=== PATIENT | female | born 1980 | race African-American/Black ===

== ENCOUNTER → 2019-08-07 | Day surgery (SDC) | payer OTHER ==
--- NOTE | 2019-08-08 16:27 | PATH ---
Surgical Pathology Report Patient Name: RISSA GARRISON [facility]. Rec. #: [id number] /Age/Gender: 1980 (Age: 38) / F Account: [id number] Location: ON LICENSE OF [facility] Taken: 08/07/2019 Received: 08/07/2019 Reported: 08/08/2019 Physicians: Milla Coot M.D. Specimen(s) Received A: BREAST, RIGHT, 10:00 B: BREAST, LEFT, 4:00 C: BREAST, LEFT, 4:30 Clinical History Right breast 10:00 0.58 cm, mass Left breast 4:00, 1.49 cm, ? ectatic duct Left breast 4:30, 0.85 cm, solid mass Final Diagnosis A. 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 B. BREAST, LEFT, 4:00, ULTRASOUND GUIDED CORE BIOPSY: INTRADUCTAL PAPILLOMA. C. BREAST, LEFT, 4:30, ULTRASOUND GUIDED CORE BIOPSY: FIBROADENOMA. Electronically Signed Tracey Fletcher M.D. Gross Description A. Received in formalin labeled "right breast 10:00," are 6 corrigan-yellow, cylindrical portions of fibroadipose tissue ranging from 0.6-1.2 cm in length and averaging 0.1 cm in diameter. The specimens are submitted in toto in one cassette. B. Received in formalin labeled "left breast 4:00," are 5 corrigan-yellow, cylindrical portions of fibroadipose tissue ranging from 0.3-1.0 cm in length and averaging 0.1 cm in diameter. The specimens are submitted in toto in one cassette. C. Received in formalin labeled "left breast 4:30," are 3 corrigan-yellow, cylindrical portions of fibroadipose tissue ranging from 0.5-0.8 cm in length and averaging 0.1 cm in diameter. The specimens are submitted in toto in one cassette. Time to formalin fixation: Less than one minute Total formalin fixation time: Approximately 6 hours. /08/07/2019 saudi/08/07/2019
== END | disposition home or self-care (01) ==
LOC: JMAMMO-SUR 10:38
PROVIDERS: ATTEND Obstetrics & Gynecology
PROC: 0H9V3ZX Drainage of Bilateral Breast, Percutaneous Approach, Diagnostic (ICD-10-PCS; principal; 2019-08-07)
DX: D24.2 Benign neoplasm of left breast (principal); N62 Hypertrophy of breast
CPT/HCPCS: 19083; 19084; 77066-TC; 87899; 88305-TC; A4648

== ENCOUNTER 2022-07-02 23:19 | Inpatient (IN) | payer OTHER ==
[2022-07-03] MEDS ORDERED: SUCRALFATE 1 GM TABLET (FP) PO ONE (00:40)
[2022-07-03] MEDS ORDERED: LACTATED RINGERS SOLUTION 1000 ML INFUS.BAG IV ONE (00:41)
[2022-07-03] MEDS ORDERED: FAMOTIDINE 20 MG/50 ML IVPB 20 MG/50 ML MG IVPB ONE ×2 (00:41→01:05)
[2022-07-03] MEDS ORDERED: MAG HYDROX/AL HYDROX/SIMETH -MYLANTA- ORAL SUSPENSION PO ONE (00:41)
[2022-07-03] MEDS ORDERED: SUCRALFATE 1 GM TABLET (FP) ONE (01:05)
[2022-07-03] MEDS ORDERED: MAG HYDROX/AL HYDROX/SIMETH 30 ML UNIT-DOSE CUP ONE (01:05)
[2022-07-03 01:55] LABS: EPI CELLS 5 /uL (0-25.1); HYALINE CASTS 1 /uL (0-3.1); PH,URINE 6.5 (5.0-8.0); URINE APPEARANCE CLEAR; URINE BACTERIA 65 /uL (0-1359); URINE BILIRUBIN 2+ (NEGATIVE); URINE COLOR DK YELLOW; URINE GLUCOSE (UA) NEGATIVE (NEGATIVE); URINE KETONE TRACE (NEGATIVE); URINE LEUK ESTERASE NEGATIVE (NEGATIVE); URINE NITRITE NEGATIVE (NEGATIVE); URINE PROTEIN NEGATIVE (NEGATIVE); URINE RBC 49 /uL (0-23.9); URINE WBC 9 /uL (0-25.8)
[2022-07-03 02:08] LABS: INR 1.01 (0.83-1.09); PROTHROMBIN TIME (PATIENT) 11.6 SEC (9.7-13.0)
[2022-07-03 02:10] LABS: ACTIVATED PTT 29.7 SECONDS (25.2-36.5)
[2022-07-03 02:13] LABS: BLOOD UREA NITROGEN 9.1 mg/dL (7-18); CALCIUM 9.8 mg/dL (8.5-10.1)
[2022-07-03 02:14] LABS: ALBUMIN 3.8 g/dl (3.4-5.0)
[2022-07-03 02:18] LABS: TOT PROT 7.5 g/dl (6.4-8.2)
[2022-07-03] MEDS ORDERED: morphine CARPU-JECT 4 MG/1 ML DISP.SYRIN IVPUSH ONE ×2 (02:21→10:16)
[2022-07-03 02:28] LABS: EOS % 5.4 % (0-4.5); HEMATOCRIT 45.4 % (32.4-45.2); HEMOGLOBIN 14.8 GM/dL (10.7-15.3); LYMPH % 20.4 % (8-40); MCH 30.8 pg (25.7-33.7); MCHC 32.7 g/dl (32.0-36.0); MEAN CELL VOLUME 94.3 fl (80-96); MEAN PLT VOLUME 8.8 fl (7.5-11.1); MONO % 9.2 % (3.8-10.2); PLATELET COUNT 232 10^3/uL (134-434); RBC 4.82 M/mm3 (3.60-5.2); RDW 13.8 % (11.6-15.6); WHITE BLOOD COUNT 4.3 K/mm3 (4.0-10.0)
[2022-07-03] MEDS ORDERED: morphine SULFATE 4 MG/ML VIAL ONE ×2 (02:39→10:37)
[2022-07-03 02:59] LABS: BILIRUBIN,DIRECT 3.2 mg/dL (0.0-0.2)
[2022-07-03] MEDS ORDERED: CEFTRIAXONE 1 GM in DEXTROSE 5%-WATER - 50 ML IVPB ONE (06:30)
[2022-07-03] MEDS ORDERED: CEFTRIAXONE 1 GM/50 ML BAG ONE (06:41)
[2022-07-03] MEDS ORDERED: SODIUM CHLORIDE 1,000 ML IV STA (10:16)
[2022-07-03] MEDS ORDERED: SODIUM CHLORIDE 1,000 ML IV SCH (11:30)
[2022-07-03] MEDS ORDERED: PIPERACILLIN/TAZOB 3.375 GM 3.375 GM in DEXTROSE 5%-WATER - 50 ML IVPB SCH ×2 (12:00→18:00)
[2022-07-03] MEDS ORDERED: PIPERACILLIN/TAZOB 3.375 GM 3.375 GM/50 ML BAG IVPB ONE ×2 (12:44→19:29)
[2022-07-03] MEDS: D5-1/2NS+20 MEQ KCL - 20 MEQ/1,000 ML INFUS.BAG IV SCH (12:56)
[2022-07-03] MEDS: PIPERACILLIN/TAZOB 3.375 GM 3.375 GM in DEXTROSE 5%-WATER - 50 ML IVPB SCH (19:33)
[2022-07-03 21:45] LABS: BASO % 1.2 % (0-2.0); EOS % 8.9 % (0-4.5); HEMATOCRIT 37.2 % (32.4-45.2); HEMOGLOBIN 12.4 GM/dL (10.7-15.3); MCH 31.4 pg (25.7-33.7); MCHC 33.3 g/dl (32.0-36.0); MEAN CELL VOLUME 94.2 fl (80-96); MEAN PLT VOLUME 8.5 fl (7.5-11.1); MONO % 11.9 % (3.8-10.2); PLATELET COUNT 241 10^3/uL (134-434); RBC 3.95 M/mm3 (3.60-5.2); RDW 13.7 % (11.6-15.6); WHITE BLOOD COUNT 3.1 K/mm3 (4.0-10.0)
[2022-07-03 21:51] LABS: PROTHROMBIN TIME (PATIENT) 11.5 SEC (9.7-13.0)
[2022-07-03 22:05] LABS: CALCIUM 8.9 mg/dL (8.5-10.1)
[2022-07-03 22:06] LABS: ALBUMIN 3.3 g/dl (3.4-5.0); BLOOD UREA NITROGEN 4.5 mg/dL (7-18)
[2022-07-03 22:09] LABS: BILIRUBIN,DIRECT 3.3 mg/dL (0.0-0.2); CREATININE 0.9 mg/dL (0.55-1.3)
[2022-07-03 22:11] LABS: BILIRUBIN,TOTAL 5.3 mg/dL (0.2-1); TOT PROT 6.6 g/dl (6.4-8.2)
[2022-07-03] MEDS ORDERED: morphine SULFATE 4 MG/ML VIAL IVPUSH ONE (22:31)
[2022-07-03] MEDS ORDERED: MINERAL OIL ENEMA 133 ML ENEMA RC ONE (22:34)
[2022-07-04] MEDS: D5-1/2NS+20 MEQ KCL - 20 MEQ/1,000 ML INFUS.BAG IV SCH ×2 (01:48→10:50)
[2022-07-04] MEDS: PIPERACILLIN/TAZOB 3.375 GM 3.375 GM in DEXTROSE 5%-WATER - 50 ML IVPB SCH ×3 (02:31→17:16)
[2022-07-04] MEDS ORDERED: PSYLLIUM 5.85 GM PACKET PO PRN (04:47)
[2022-07-04 09:06] VITALS: BMI 26.0
[2022-07-04 10:24] LABS: EOS % 12.9 % (0-4.5); HEMATOCRIT 35.5 % (32.4-45.2); HEMOGLOBIN 11.8 GM/dL (10.7-15.3); LYMPH % 33.5 % (8-40); MCH 31.3 pg (25.7-33.7); MCHC 33.3 g/dl (32.0-36.0); MEAN CELL VOLUME 93.8 fl (80-96); MEAN PLT VOLUME 8.8 fl (7.5-11.1); MONO % 11.6 % (3.8-10.2); PLATELET COUNT 248 10^3/uL (134-434); RBC 3.78 M/mm3 (3.60-5.2); RDW 13.5 % (11.6-15.6)
[2022-07-04 10:50] LABS: CALCIUM 8.7 mg/dL (8.5-10.1)
[2022-07-04 10:51] LABS: BLOOD UREA NITROGEN 3.4 mg/dL (7-18)
[2022-07-04 10:52] LABS: CREATININE 0.9 mg/dL (0.55-1.3)
[2022-07-04 10:53] LABS: BILIRUBIN,TOTAL 4.3 mg/dL (0.2-1); TOT PROT 6.1 g/dl (6.4-8.2)
[2022-07-04] MEDS ORDERED: MIDAZOLAM HCL 2 MG/2 ML SINGLE DOSE VIAL ONE (13:36)
[2022-07-04] MEDS ORDERED: INDOMETHACIN 50 MG RECTAL SUPPOSITORY PR ONE ×2 (14:00→14:22)
[2022-07-04] MEDS ORDERED: IOHEXOL 300 MG/ML INFUS..BTL IV ONE (14:51)
[2022-07-04] MEDS ORDERED: DEXTROSE 5%-LACTATED RINGERS 1,000 ML IV SCH ×2 (16:00→23:00)
[2022-07-05] MEDS: PIPERACILLIN/TAZOB 3.375 GM 3.375 GM in DEXTROSE 5%-WATER - 50 ML IVPB SCH ×3 (02:06→17:37)
[2022-07-05] MEDS: DEXTROSE 5%-LACTATED RINGERS 1,000 ML IV SCH ×2 (03:45→09:49)
[2022-07-05] MEDS ORDERED: morphine SULFATE 4 MG/ML VIAL IVPUSH ONE ×2 (06:02→20:54)
[2022-07-05] MEDS: DOCUSATE SODIUM 100 MG CAPSULE (FP) PO PRN ×2 (09:33→22:28)
[2022-07-05 11:01] LABS: ALBUMIN 2.8 g/dl (3.4-5.0)
[2022-07-05 11:03] LABS: BILIRUBIN,DIRECT 1.5 mg/dL (0.0-0.2)
[2022-07-05 11:05] LABS: TOT PROT 5.5 g/dl (6.4-8.2)
[2022-07-05 11:06] LABS: BILIRUBIN,TOTAL 2.8 mg/dL (0.2-1)
[2022-07-05] MEDS ORDERED: BUPIVACAINE HCL/PF 0.25% (2.5MG/ML) 10 ML VIAL ONE (14:58)
[2022-07-05] MEDS ORDERED: SODIUM PHOSPHATE/NA BIPHOS 133 ML ENEMA RC ONE (15:53)
[2022-07-05] MEDS ORDERED: PIPERACILLIN/TAZOBACTAM 3.375 GM VIAL IVPB ONE (17:23)
[2022-07-05] MEDS ORDERED: oxyCODONE HCL 5 MG TABLET PO ONE (21:58)
[2022-07-06] MEDS: PIPERACILLIN/TAZOB 3.375 GM 3.375 GM in DEXTROSE 5%-WATER - 50 ML IVPB SCH ×2 (02:46→09:21)
[2022-07-06] MEDS: DEXTROSE 5%-LACTATED RINGERS 1,000 ML IV SCH ×2 (02:52→11:44)
[2022-07-06] MEDS ORDERED: POLYETHYLENE GLYCOL (HEALTHYLAX) 3350 17 GM PACKET PO SCH (10:00)
[2022-07-06] MEDS ORDERED: BUPIVACAINE HCL/PF 0.5% (5MG/ML) 10 ML VIAL IJ ONE ×2 (11:04)
[2022-07-06] MEDS ORDERED: SUCCINYLCHOLINE CHLORIDE 200 MG/10 ML SYRINGE ONE (11:26)
[2022-07-06] MEDS ORDERED: PROPOFOL 20 ML ONE (11:26)
[2022-07-06] MEDS ORDERED: MIDAZOLAM HCL 2 MG/2 ML SINGLE DOSE VIAL ONE (11:27)
[2022-07-06 11:57] LABS: HEMATOCRIT 31.8 % (32.4-45.2); HEMOGLOBIN 10.6 GM/dL (10.7-15.3); MCH 31.1 pg (25.7-33.7); MCHC 33.2 g/dl (32.0-36.0); MEAN CELL VOLUME 93.9 fl (80-96); PLATELET COUNT 209 10^3/uL (134-434); RBC 3.39 M/mm3 (3.60-5.2); RDW 13.5 % (11.6-15.6); WHITE BLOOD COUNT 3.1 K/mm3 (4.0-10.0)
[2022-07-06] MEDS ORDERED: ROCURONIUM BROMIDE 50 MG/5 ML SYRINGE ONE (12:04)
[2022-07-06] MEDS ORDERED: KETOROLAC TROMETHAMINE 30 MG/1 ML VIAL ONE (12:05)
[2022-07-06] MEDS ORDERED: DEXAMETHASONE SOD PHOSPHATE 4 MG/1 ML VIAL ONE (12:05)
[2022-07-06] MEDS ORDERED: ONDANSETRON 4 MG/2 ML VIAL ONE (12:05)
[2022-07-06] MEDS ORDERED: HYDROmorphone HCl 2 MG/ML VIAL ONE (12:07)
[2022-07-06] MEDS ORDERED: NEOSTIGMINE METHYLSULFATE 0.5 MG/ML - 10 ML MDV ONE (12:20)
[2022-07-06] MEDS ORDERED: GLYCOPYRROLATE 0.2 MG/1 ML VIAL ONE (12:21)
[2022-07-06 12:22] LABS: CALCIUM 8.7 mg/dL (8.5-10.1)
[2022-07-06 12:24] LABS: ALBUMIN 2.7 g/dl (3.4-5.0); BLOOD UREA NITROGEN 4.6 mg/dL (7-18)
[2022-07-06 12:27] LABS: CREATININE 0.8 mg/dL (0.55-1.3)
[2022-07-06 12:28] LABS: BILIRUBIN,TOTAL 2.3 mg/dL (0.2-1); TOT PROT 5.5 g/dl (6.4-8.2)
[2022-07-06] MEDS ORDERED: ONDANSETRON 4 MG/2 ML VIAL IVPUSH PRN ×2 (13:04→13:19)
[2022-07-06] MEDS ORDERED: ACETAMINOPHEN 1000 MG/100 ML BAG IVPB ONE (13:04)
[2022-07-06] MEDS ORDERED: LACTATED RINGERS SOLUTION 1,000 ML IV SCH (13:15)
[2022-07-06] MEDS ORDERED: oxyCODONE HCL 5 MG TABLET PO PRN ×2 (13:19)
[2022-07-06] MEDS ORDERED: DOCUSATE SODIUM 100 MG CAPSULE (FP) PO PRN (13:19)
[2022-07-06] MEDS ORDERED: PSYLLIUM 5.85 GM PACKET PO PRN (13:19)
[2022-07-06 15:35] VITALS: RESP 18
[2022-07-06] MEDS: LACTATED RINGERS SOLUTION 1,000 ML IV SCH ×2 (17:30→21:24)
[2022-07-06] MEDS: ACETAMINOPHEN 500 MG TABLET (FP) PO SCH (20:24)
[2022-07-06] MEDS: POLYETHYLENE GLYCOL (HEALTHYLAX) 3350 17 GM PACKET PO SCH (21:23)
[2022-07-07] MEDS: ACETAMINOPHEN 500 MG TABLET (FP) PO SCH ×3 (01:22→14:26)
[2022-07-07] MEDS: LACTATED RINGERS SOLUTION 1,000 ML IV SCH ×2 (05:26→14:23)
[2022-07-07] MEDS: KETOROLAC TROMETHAMINE 30 MG/1 ML VIAL IVPUSH SCH ×2 (06:12→10:43)
[2022-07-07] MEDS: POLYETHYLENE GLYCOL (HEALTHYLAX) 3350 17 GM PACKET PO SCH ×3 (09:19→10:43)
[2022-07-07] MEDS ORDERED: URSODIOL 300 MG CAPSULE PO SCH (10:00)
[2022-07-07] MEDS ORDERED: POLYETHYLENE GLYCOL 3350 255 GM BTL PO ONE (10:30)
[2022-07-07 11:39] LABS: HEMATOCRIT 34.1 % (32.4-45.2); HEMOGLOBIN 11.3 GM/dL (10.7-15.3); MCH 31.1 pg (25.7-33.7); MCHC 33.1 g/dl (32.0-36.0); MEAN CELL VOLUME 94.1 fl (80-96); MEAN PLT VOLUME 8.8 fl (7.5-11.1); PLATELET COUNT 271 10^3/uL (134-434); RBC 3.63 M/mm3 (3.60-5.2); RDW 13.5 % (11.6-15.6); WHITE BLOOD COUNT 6.2 K/mm3 (4.0-10.0)
[2022-07-07 12:01] LABS: ALBUMIN 3.1 g/dl (3.4-5.0); BLOOD UREA NITROGEN 4.6 mg/dL (7-18); CALCIUM 9.1 mg/dL (8.5-10.1)
[2022-07-07 12:05] LABS: CREATININE 0.8 mg/dL (0.55-1.3); TOT PROT 6.4 g/dl (6.4-8.2)
[2022-07-07] MEDS ORDERED: LACTATED RINGERS SOLUTION 1,000 ML IV SCH (13:22)
[2022-07-07 18:00] VITALS: BP 117/72; PULSE 71; TEMP 98.3
== END 2022-07-07 19:25 | disposition home or self-care (01) | DRG 263 ==
LOC: JER 23:19 → JERBED 07-03 05:10 → J5S 07-03 19:41
PROVIDERS: ADMIT Family Medicine; ATTEND Family Medicine
PROC: 0FC98ZZ Extirpation of Matter from Common Bile Duct, Via Natural or Artificial Opening Endoscopic (ICD-10-PCS; 2022-07-04)
PROC: 0F998ZZ Drainage of Common Bile Duct, Via Natural or Artificial Opening Endoscopic (ICD-10-PCS; 2022-07-04)
PROC: BF13YZZ Fluoroscopy of Gallbladder and Bile Ducts using Other Contrast (ICD-10-PCS; 2022-07-04)
PROC: 0FT44ZZ Resection of Gallbladder, Percutaneous Endoscopic Approach (ICD-10-PCS; principal; 2022-07-06 11:30)
DX: K80.21 Calculus of gallbladder without cholecystitis with obstruction (principal); K83.09 Other cholangitis; R10.9 Unspecified abdominal pain; R74.01 Elevation of levels of liver transaminase levels; E86.0 Dehydration
CPT/HCPCS: 0241U-QW; 36415; 71046-TC-FY; 74177-TC; 74181-TC; 74330-TC; 76705-TC; 80048; 80053; 80076; 81003; 82150; 82248; 83690; 83735; 84484; 84703; 85025; 85027; 85610; 85730; 86140; 87040; 87086; 88304-TC; 93005; 93010; 94760; 99285-25

== ENCOUNTER 2022-12-14 11:00 | Emergency (ER) | payer OTHER ==
[2022-12-14 11:14] VITALS: RESP 18; BMI 33.4
[2022-12-14] MEDS ORDERED: MAG HYDROX/AL HYDROX/SIMETH -MYLANTA- ORAL SUSPENSION PO ONE (11:39)
[2022-12-14] MEDS ORDERED: FAMOTIDINE 20 MG/50 ML IVPB 20 MG in PREMIX 50 IVPB ONE (11:39)
[2022-12-14] MEDS ORDERED: SODIUM CHLORIDE 1,000 ML IV ONE (11:49)
[2022-12-14] MEDS ORDERED: MAG HYDROX/AL HYDROX/SIMETH 30 ML UNIT-DOSE CUP ONE (12:01)
[2022-12-14] MEDS ORDERED: FAMOTIDINE 10 MG/ML VIAL IVPB ONE (12:01)
[2022-12-14 13:19] LABS: BASO % 1.2 % (0-2.0); EOS % 6.8 % (0-4.5); HEMOGLOBIN 12.6 GM/dL (10.7-15.3); LYMPH % 43.8 % (8-40); MCH 30.5 pg (25.7-33.7); MEAN CELL VOLUME 92.2 fl (80-96); MEAN PLT VOLUME 8.3 fl (7.5-11.1); MONO % 12.5 % (3.8-10.2); NEUT % 35.7 % (42.8-82.8); PLATELET COUNT 283 10^3/uL (134-434); RBC 4.12 M/mm3 (3.60-5.2); RDW 13.8 % (11.6-15.6); WHITE BLOOD COUNT 3.4 K/mm3 (4.0-10.0)
[2022-12-14 13:20] LABS: PH,URINE 8.5 (5.0-8.0); URINE APPEARANCE CLEAR; URINE BILIRUBIN NEGATIVE (NEGATIVE); URINE COLOR YELLOW; URINE GLUCOSE (UA) NEGATIVE (NEGATIVE); URINE KETONE NEGATIVE (NEGATIVE); URINE LEUK ESTERASE NEGATIVE (NEGATIVE); URINE NITRITE NEGATIVE (NEGATIVE); URINE PROTEIN NEGATIVE (NEGATIVE); URINE UROBILINOGEN 0.2 mg/dL (0.2-1.0)
[2022-12-14 13:39] LABS: ALBUMIN 3.8 g/dl (3.4-5.0); BLOOD UREA NITROGEN 6.9 mg/dL (7-18); CALCIUM 9.2 mg/dL (8.5-10.1)
[2022-12-14 13:41] LABS: CREATININE 0.9 mg/dL (0.55-1.3)
[2022-12-14 13:43] LABS: BILIRUBIN,TOTAL 1.2 mg/dL (0.2-1); TOT PROT 7.5 g/dl (6.4-8.2)
[2022-12-14] MEDS ORDERED: SUCRALFATE 1 GM TABLET (FP) PO ONE (14:28)
[2022-12-14] MEDS ORDERED: SUCRALFATE 1 GM TABLET (FP) ONE (14:56)
[2022-12-14 17:34] VITALS: BP 110/74; PULSE 78; TEMP 98
== END 2022-12-14 17:32 | disposition home or self-care (01) ==
LOC: JER 11:00
PROC: 3E033GC Introduction of Other Therapeutic Substance into Peripheral Vein, Percutaneous Approach (ICD-10-PCS; principal; 2022-12-14)
DX: R10.13 Epigastric pain (principal); R19.7 Diarrhea, unspecified; D72.819 Decreased white blood cell count, unspecified
CPT/HCPCS: 36415; 71046-TC-FY; 74177-TC; 80053; 81003; 83690; 84484; 85025; 93005; 93010; 99285-25; Q9967

== ENCOUNTER 2023-02-19 17:02 | Emergency (ER) | payer OTHER ==
[2023-02-19 17:20] VITALS: RESP 17; BMI 34.0
[2023-02-19] MEDS ORDERED: ONDANSETRON 4 MG/2 ML VIAL IVPUSH ONE (17:56)
[2023-02-19] MEDS ORDERED: SODIUM CHLORIDE 0.9% 500 ML INFUS.BAG IV ONE (17:56)
[2023-02-19 18:47] LABS: BASO % 0.9 % (0-2.0); EOS % 1.2 % (0-4.5); HEMATOCRIT 40.7 % (32.4-45.2); HEMOGLOBIN 13.5 GM/dL (10.7-15.3); MCH 30.6 pg (25.7-33.7); MCHC 33.1 g/dl (32.0-36.0); MEAN CELL VOLUME 92.4 fl (80-96); MEAN PLT VOLUME 8.4 fl (7.5-11.1); MONO % 8.1 % (3.8-10.2); NEUT % 50.8 % (42.8-82.8); PLATELET COUNT 283 10^3/uL (134-434); RBC 4.41 M/mm3 (3.60-5.2); RDW 13.5 % (11.6-15.6); WHITE BLOOD COUNT 4.4 K/mm3 (4.0-10.0)
[2023-02-19 19:05] LABS: POTASSIUM 4.1 mmol/L (3.5-5.1)
[2023-02-19 19:07] LABS: CALCIUM 10.1 mg/dL (8.5-10.1)
[2023-02-19 19:08] LABS: ALBUMIN 4.3 g/dl (3.4-5.0); BLOOD UREA NITROGEN 6.7 mg/dL (7-18)
[2023-02-19 19:11] LABS: CREATININE 0.9 mg/dL (0.55-1.3)
[2023-02-19 19:12] LABS: TOT PROT 8.3 g/dl (6.4-8.2)
[2023-02-19 19:13] LABS: BILIRUBIN,TOTAL 1.1 mg/dL (0.2-1)
[2023-02-19 19:40] VITALS: BP 137/87; PULSE 68; TEMP 97.5
== END 2023-02-19 19:45 | disposition home or self-care (01) ==
LOC: JER 17:02 → JERFT 17:02
PROC: 3E033GC Introduction of Other Therapeutic Substance into Peripheral Vein, Percutaneous Approach (ICD-10-PCS; principal; 2023-02-19)
DX: T36.3X1A Poisoning by macrolides, accidental (unintentional), initial encounter (principal); R11.2 Nausea with vomiting, unspecified; R10.9 Unspecified abdominal pain; R12 Heartburn; M54.9 Dorsalgia, unspecified
CPT/HCPCS: 36415; 80053; 83690; 85025; 87651; 93005; 93010; 99284-25

== ENCOUNTER 2023-06-10 09:16 | Emergency (ER) | payer OTHER ==
[2023-06-10 09:45] VITALS: BP 118/57; PULSE 72; RESP 18; TEMP 98.1; BMI 33.0
[2023-06-10] MEDS ORDERED: KETOROLAC TROMETHAMINE 30 MG/1 ML VIAL IM ONE (10:08)
[2023-06-10] MEDS ORDERED: KETOROLAC TROMETHAMINE 30 MG/1 ML VIAL ONE (10:24)
== END 2023-06-10 10:42 | disposition home or self-care (01) ==
LOC: JERFT 09:16 → JER 09:16 → JERFT 10:42
PROC: 3E0233Z Introduction of Anti-inflammatory into Muscle, Percutaneous Approach (ICD-10-PCS; principal; 2023-06-10)
DX: S93.402A Sprain of unspecified ligament of left ankle, initial encounter (principal); R22.42 Localized swelling, mass and lump, left lower limb; M25.572 Pain in left ankle and joints of left foot; X50.1XXA Overexertion from prolonged static or awkward postures, initial encounter; W10.8XXA Fall (on) (from) other stairs and steps, initial encounter
CPT/HCPCS: 73610-TC-LT-FY; 73630-TC-LT; 99284-25

== ENCOUNTER 2023-10-04 08:23 | Emergency (ER) | payer OTHER ==
[2023-10-04 08:39] VITALS: BP 109/69; PULSE 73; RESP 18; TEMP 98; BMI 33.0
[2023-10-04 09:23] LABS: BASO % 1.3 % (0-2.0); EOS % 6.5 % (0-4.5); HEMATOCRIT 36.5 % (32.4-45.2); LYMPH % 35.4 % (8-40); MCH 30.9 pg (25.7-33.7); MCHC 32.9 g/dl (32.0-36.0); MEAN CELL VOLUME 94.1 fl (80-96); MEAN PLT VOLUME 7.7 fl (7.5-11.1); MONO % 10.5 % (3.8-10.2); NEUT % 46.3 % (42.8-82.8); PLATELET COUNT 277 10^3/uL (134-434); RBC 3.87 M/mm3 (3.60-5.2); RDW 13.7 % (11.6-15.6); WHITE BLOOD COUNT 3.3 K/mm3 (4.0-10.0)
[2023-10-04 09:36] LABS: POTASSIUM 4.8 mmol/L (3.5-5.1)
[2023-10-04 09:38] LABS: CALCIUM 8.9 mg/dL (8.5-10.1)
[2023-10-04 09:39] LABS: ALBUMIN 3.5 g/dl (3.4-5.0)
[2023-10-04 09:42] LABS: CREATININE 0.9 mg/dL (0.55-1.3)
[2023-10-04 09:43] LABS: BILIRUBIN,TOTAL 0.9 mg/dL (0.2-1); TOT PROT 6.8 g/dl (6.4-8.2)
[2023-10-04 10:08] LABS: PH,URINE 7.5 (5.0-8.0); URINE APPEARANCE CLEAR; URINE BILIRUBIN NEGATIVE (NEGATIVE); URINE COLOR YELLOW; URINE GLUCOSE (UA) NEGATIVE (NEGATIVE); URINE KETONE NEGATIVE (NEGATIVE); URINE LEUK ESTERASE NEGATIVE (NEGATIVE); URINE NITRITE NEGATIVE (NEGATIVE); URINE PROTEIN NEGATIVE (NEGATIVE); URINE UROBILINOGEN 0.2 mg/dL (0.2-1.0)
[2023-10-04] MEDS ORDERED: ACETAMINOPHEN 1000 MG/100 ML BAG IVPB ONE (10:14)
[2023-10-04] MEDS ORDERED: SODIUM CHLORIDE 0.9% 500 ML INFUS.BAG IV ONE (10:14)
[2023-10-04] MEDS ORDERED: ACETAMINOPHEN INJECTION 100 ML IVPB ONE (10:15)
[2023-10-04] MEDS ORDERED: MAG HYDROX/AL HYDROX/SIMETH 30 ML UNIT-DOSE CUP PO ONE (12:18)
[2023-10-04] MEDS ORDERED: PANTOPRAZOLE 40 MG TABLET PO ONE ×2 (12:18→12:24)
[2023-10-04] MEDS ORDERED: MAG HYDROX/AL HYDROX/SIMETH 30 ML UNIT-DOSE CUP ONE (12:25)
== END 2023-10-04 12:55 | disposition home or self-care (01) ==
LOC: JER 08:23
PROC: 3E033NZ Introduction of Analgesics, Hypnotics, Sedatives into Peripheral Vein, Percutaneous Approach (ICD-10-PCS; principal; 2023-10-04)
DX: R10.10 Upper abdominal pain, unspecified (principal); R10.30 Lower abdominal pain, unspecified; K52.9 Noninfective gastroenteritis and colitis, unspecified; D25.9 Leiomyoma of uterus, unspecified
CPT/HCPCS: 36415; 74177-TC; 80053; 81003; 83690; 84484; 84703; 85025; 87086; 93005; 93010; 99285-25; J0131; Q9967